=== PATIENT | female | born 1990 | race African-American/Black ===

== ENCOUNTER 2023-06-19 21:43 | Emergency (ER) | payer OTHER ==
[~2023-06-19] VITALS: Ht 170.2 cm; Wt 77.1 kg
[2023-06-19 23:00] LABS: BASOPHILS # (AUTO) 0.1 K/uL (0.0-0.2); BASOPHILS % (AUTO) 0.7 % (0.0-2.0); EOSINOPHILS # (AUTO) 0.1 K/uL (0.0-0.7); EOSINOPHILS % (AUTO) 0.7 % (0.0-6.0); HEMATOCRIT 42 % (33-45); HEMOGLOBIN 14.4 g/dL (11.5-14.8); LYMPHOCYTES # (AUTO) 3.3 K/uL (0.8-4.8); LYMPHOCYTES % (AUTO) 32.1 % (20.0-44.0); MEAN CORPUSCULAR HEMOGLOBIN 31 PG (26.0-33.0); MEAN CORPUSCULAR HGB CONC 34 g/dl (31.0-36.0); MEAN CORPUSCULAR VOLUME 90 fL (82-100); MONOCYTES # (AUTO) 0.6 K/uL (0.1-1.30); MONOCYTES % (AUTO) 6.2 % (2.0-12.0); NEUTROPHILS # (AUTO) 6.2 K/uL (1.8-8.9); NEUTROPHILS % (AUTO) 60.3 % (43.0-81.0); PLATELET COUNT (AUTO) 250 K/uL (150-450); RED BLOOD CELL COUNT(AUTO) 4.67 MIL/uL (4.0-5.2); RED CELL DISTRIBUTION WIDTH 13.3 % (11.5-15.0); WHITE BLOOD COUNT (AUTO) 10.2 K/uL (4.3-11.0)
[2023-06-19] MEDS ORDERED: CEFAZOLIN 1 GM in IV D5W 50 ML IV ONE (23:00)
[2023-06-19] MEDS ORDERED: LIDOCAINE HCL/MPF 1% 30 ML VIAL IJ ONE (23:00)
[2023-06-19] MEDS ORDERED: CEFTRIAXONE 1GM BAG (ER ONLY) 50 ML IV ONE (23:07)
[2023-06-19 23:09] LABS: CREATININE 0.8 mg/dL (0.6-1.3); POTASSIUM 3.3 mmol/L (3.5-5.1)
[2023-06-19] MEDS: LIDOCAINE HCL/PF 1% 30 ML VIAL IM ONE (23:13)
[2023-06-19] MEDS: CEFTRIAXONE 1 G in IV D5W 50 ML IV ONE (23:13)
[2023-06-19 23:15] LABS: ALBUMIN 3.7 g/dL (3.4-5.0); BILIRUBIN,TOTAL 0.2 mg/dL (0.2-1.0); TOTAL PROTEIN, SERUM 7.7 g/dL (6.4-8.2)
[2023-06-19] MEDS ORDERED: RABIES VACCINE (PCEC)/PF 1 EA KIT IM ONE (23:52)
[2023-06-20] MEDS: RABIES VACCINE (PCEC)/PF 1 EA KIT IM ONE (00:42)
[2023-06-20] MEDS ORDERED: CEPH500C2 PO (01:17)
[2023-06-20 01:43] VITALS: BP 121/74; TEMP 98.1; O2SAT 98
[2023-06-20] MEDS: POTASSIUM CHLORIDE 20 MEQ TAB.PRT.SR PO ONE (01:43)
== END 2023-06-20 01:43 | disposition home or self-care (01) ==
LOC: ER 21:47
DX: S51.812A Laceration without foreign body of left forearm, initial encounter (principal); Z88.8 Allergy status to other drugs, medicaments and biological substances; W54.0XXA Bitten by dog, initial encounter; Y93.89 Activity, other specified; Y92.89 Other specified places as the place of occurrence of the external cause; Y99.8 Other external cause status
CPT/HCPCS: 12002; 36415; 73090; 80053; 85025; 90471; 90675; 96365; 99284; J0690; J0696; J3490; J7060